=== PATIENT | female | born 1950 | race Caucasian/White ===

== ENCOUNTER 2017-06-05 10:34 | Emergency (ER) | payer OTHER ==
[2017-06-05 10:53] VITALS: RESP 16; TEMP 98.1
[2017-06-05] MEDS ORDERED: MAGNESIUM CITRATE 300 ML BOTTLE PO ONE ×2 (10:53→11:42)
--- NOTE | 2017-06-05 10:55 | EDPHY ---
H & P Stated Complaint: constipation since saturday Time Seen by Provider: 06/05/17 10:52 HPI/ROS: Chief Complaint: Constipation HPI: 66-year-old woman with a history of Parkinson's disease presenting with constipation. She has not had a bowel movement since Saturday. She normally takes Colace. She did use an enema and suppository without any relief today. No abdominal pain. No nausea or vomiting. She has had similar episodes in the past. She is not feel she is obstructed. No history of bowel surgeries in the past. No fevers or chills. She does believe she is not drinking enough water because it makes her urinate she cannot get to the bathroom quickly given her Parkinson's disease. She also states she takes hydrocodone daily. ROS: 10 point Review of Systems is negative except as noted in the HPI. PMH: Parkinson's disease, breast cancer Medications: Mirapex, Colace, hydrocodone Social History: No smoking, no alcohol, no recreational drug use Family History: non-contributory Physical Exam: Gen: Awake, Alert, No Distress HEENT: Nose: no rhinorrhea Eyes: PERRLA, EOMI Mouth: Moist mucosa Neck: Supple, no JVD Chest: nontender, lungs clear to auscultation Heart: S1, S2 normal, no murmur Abd: Soft, non-tender, no guarding Back: no CVA tenderness, no midline tenderness Ext: no edema, non-tender Skin: no rash Neuro: CN II-XII intact, Sensation grossly intact, Strength 5/5 in bilateral upper and lower extremities - Personal History Tetanus Vaccine Date: WITHIN 10 YRS - Medical/Surgical History Hx Asthma: No Hx Chronic Respiratory Disease: No Hx Diabetes: No Hx Cardiac Disease: No Hx Renal Disease: No Hx Cirrhosis: No Hx Alcoholism: No Hx HIV/AIDS: No Hx Splenectomy or Spleen Trauma: No Other PMH: PARKINSONS/ BX OF T-12, -BREAST CANCER, R hip replace, bilat mastectomy. chronic pain - Social History Smoking Status: Never smoked Constitutional: Initial Vital Signs Temperature (C) 36.7 C 06/05/17 10:48 Heart Rate 90 06/05/17 10:48 Respiratory Rate 16 06/05/17 10:48 Blood Pressure 114/87 H 06/05/17 10:48 O2 Sat (%) 92 06/05/17 10:48 O2 Delivery Mode Room Air Allergies/Adverse Reactions: ciprofloxacin [From Cipro] Allergy (Mild, Verified 05/26/16 11:11) ciprofloxacin HCl [From Cipro] Allergy (Mild, Verified 05/26/16 11:11) thimerosal [From Merthiolate] Allergy (Mild, Verified 05/26/16 11:11) Home Medications: Medication Instructions Recorded Calcium/Magnesium/Vitamin D 2 tab PO DAILY 10/04/11 Ibuprofen [Motrin (*)] 400 mg PO Q6 PRN 10/04/11 Vitamin B Complex [Vitamin B 1 each PO DAILY 10/04/11 Complex (OTC)] Arimidex 1 mg (RX) 01/25/14 Carbidopa-Levo 10-100 mg Odt 01/25/14 Entacapone 01/25/14 Hydrocodon-Acetaminoph 7.5-300 01/25/14 Mirapex 01/25/14 Oxycodon-Acetaminophen 2.5-325 01/25/14 Zofran 01/25/14 Cyclobenzaprine [Flexeril] 10 mg PO TID #21 tab 05/26/16 fentaNYL [Duragesic 50 MCG Patch 1 each TD 05/26/16 (*)] Morphine Sulfate 06/01/16 Baclofen 06/04/16 Medical Decision Making Procedures: Procedure note: Stool disimpaction. Indication: Constipation. Patient was placed in the lateral, position. Rectal examination was performed with adequate lubrication. There is a large amount of soft stool in the rectum. This was removed digitally. Patient was then placed on the commode. She continue to passed a large stool. Patient tolerated procedure well. No complications. ED Course/Re-evaluation: Patient has had a large stool status post medications and this impaction. She is comfortable. She has a soft benign bili. Will discharge with follow-up with primary care physician as an outpatient. - Data Points Medications Given: Discontinued Medications Magnesium Citrate (Magnesium Citrate) 150 ml PO ONCE ONE Stop: 06/05/17 10:54 Last Admin: 06/05/17 10:59 Dose: 150 ml Magnesium Citrate (Magnesium Citrate) 150 ml PO ONCE ONE Stop: 06/05/17 11:43 Last Admin: 06/05/17 11:43 Dose: 150 ml Departure - Departure Disposition: Home, Routine, Self-Care Clinical Impression: Constipation Condition: Good Instructions: Constipation (ED) Additional Instructions: Make sure to drink at least eight 8 oz glasses of water a day. You may take MiraLax daily according to package instructions. If you feel constipated drink 1/2 bottle of magnesium citrate. Wait 1-2 hours. If you do not have a bowel movement after that time drink the 2nd half of the bottle. If you continues to be constipated you may use a Fleet's enema, available over- the-counter. Referrals: Jovan Schmitz MD [Primary Care Provider] - As per Instructions
[2017-06-05 13:18] VITALS: BP 110/87; PULSE 84; O2SAT 94
== END 2017-06-05 13:14 | disposition home or self-care (01) ==
LOC: CED 10:34
DX: K59.00 Constipation, unspecified (principal); Z85.3 Personal history of malignant neoplasm of breast